=== PATIENT | male | born 1930 | race Caucasian/White ===

== ENCOUNTER 2016-11-06 12:01 | Emergency (ER) | payer MEDICARE, BC ==
[2016-11-06 11:26] LABS: BASOPHILS 0.7 %; BASOPHILS ABSOLUTE 0.06 10/3/uL (0.0-0.16); EOSINOPHILS 3.7 %; ER CBC TAT 0 Hrs 03 Mins; HEMATOCRIT 45.9 % (40.0-51.0); HEMOGLOBIN 15.3 g/dL (13.6-17.8); IMMATURE GRANULOCYTES 0.4 %; IMMATURE GRANULOCYTES ABSOLUTE 0.03 10/3/uL (0.0-0.11); LYMPHOCYTES 36.9 %; LYMPHOCYTES ABSOLUTE 2.98 10/3/uL (0.67-4.30); MEAN CORPUS HGB CONC 33.3 g/dL (32.0-36.0); MEAN CORPUSCULAR HEMOGLOB 29.4 pg (26.0-34.0); MEAN PLATELET VOLUME 9.8 fL (9.2-13.0); MONOCYTES 5.2 %; MONOCYTES ABSOLUTE 0.42 10/3/uL (0.21-1.20); NEUTROPHILS 53.1 %; NEUTROPHILS ABSOLUTE 4.28 10/3/uL (2.02-8.40); RBC DISTRIBUTION WIDTH 13.5 % (12.0-16.0); RED CELL COUNT 5.21 10/6/uL (4.7-6.1); WHITE BLOOD CELLS 8.1 10/3/uL (4.5-10.5)
[2016-11-06 11:27] LABS: MANUAL DIFF NO %; MEAN CORPUSCULAR VOLUME 88.1 fL (80-100); PLATELET COUNT 207 10/3/uL (150-400)
[2016-11-06 11:34] LABS: PARTIAL THROMBO TIME 26.1 SEC (22.5-37.2); PROTIME (NOT ORD) 12.9 SEC (12.0-14.5)
[2016-11-06 11:41] LABS: BUN (BLOOD UREA NITROGEN) 24 MG/DL (6-23); CHEST PAIN PROFILE TAT 0 Hrs 18 Mins; CHLORIDE, SERUM 104 MMOL/L (96-112); CO2 (CARBON DIOXIDE) 29 MMOL/L (24-34); GFR AFRICAN AMERICAN 45 ML/MIN (>=60); GFR NON AFRICAN AMERICAN 39 ML/MIN (>=60); GLUCOSE, SERUM 139 MG/DL (60-99); POTASSIUM, SERUM 4.3 MMOL/L (3.5-5.3); SODIUM, SERUM 141 MMOL/L (135-148); TROPONIN I 0.04 NG/ML (<0.05)
[~2016-11-06 12:01] MED LIST: ALB4 PO; ASAB PO; BLOOD THINNER PO; CAT1 PO; COMBIVENT INH; CORDARONE PO; COREG12 PO; COREG6 PO; FLOMAX4 PO; HALF81 PO; I40 PO; JANTOVEN3 MG PO; JANTOVEN4 MG PO; JANTOVEN5 MG PO; KLOR-CON 1010 MEQ PO; KLOR-CON M2020 MEQ PO; L40 PO; L80 PO; LEVAQUIN750 MG PO; LOP25 PO; M-END PE PO; MICRO-K10 MEQ PO; MOMUD PO; PACERONE100 MG PO; PACERONE200 MG PO; PRILO PO; PRIN20 PO; PROAIR HFA INH; SYMBICORT 160/41 INH INH; VENTOLIN HFA INH; Z300 PO; ZANTAC150 MG PO; ZESTRIL20 MG PO; [UNRECOGNIZED DRUG - OTHER] PO
[2017-04-06] MEDS ORDERED: METHOC500B PO (08:17)
[2017-04-06] MEDS ORDERED: KLOR-CON M2020 MEQ PO (08:22)
== END 2016-11-06 13:21 | disposition home or self-care (01) ==
LOC: ER 12:01
PROVIDERS: Emergency Medicine
DX: J06.9 Acute upper respiratory infection, unspecified (principal); I13.0 Hypertensive heart and chronic kidney disease with heart failure and stage 1 through stage 4 chronic kidney disease, or unspecified chronic kidney disease; I50.9 Heart failure, unspecified; Z87.891 Personal history of nicotine dependence; Z87.01 Personal history of pneumonia (recurrent); Z79.82 Long term (current) use of aspirin; Z79.899 Other long term (current) drug therapy
CPT/HCPCS: 71010; 80048; 83735; 83880; 84484; 85025; 85610; 85730; 87040; 93005; 96374; 96375; 99284; J2930

== ENCOUNTER 2017-02-18 10:05 | Emergency (ER) | payer MEDICARE, BC ==
[2017-02-18 09:24] LABS: BASOPHILS 0.6 %; BASOPHILS ABSOLUTE 0.04 10/3/uL (0.0-0.16); EOSINOPHILS ABSOLUTE 0.14 10/3/uL (0.0-0.53); HEMATOCRIT 48.1 % (40.0-51.0); HEMOGLOBIN 16.2 g/dL (13.6-17.8); IMMATURE GRANULOCYTES 0.1 %; IMMATURE GRANULOCYTES ABSOLUTE 0.01 10/3/uL (0.0-0.11); LYMPHOCYTES 34.8 %; LYMPHOCYTES ABSOLUTE 2.46 10/3/uL (0.67-4.30); MEAN CORPUS HGB CONC 33.7 g/dL (32.0-36.0); MEAN CORPUSCULAR HEMOGLOB 30.1 pg (26.0-34.0); MEAN CORPUSCULAR VOLUME 89.4 fL (80-100); MEAN PLATELET VOLUME 10.3 fL (9.2-13.0); MONOCYTES 7.5 %; MONOCYTES ABSOLUTE 0.53 10/3/uL (0.21-1.20); NEUTROPHILS ABSOLUTE 3.89 10/3/uL (2.02-8.40); PLATELET COUNT 160 10/3/uL (150-400); RBC DISTRIBUTION WIDTH 14.2 % (12.0-16.0); RED CELL COUNT 5.38 10/6/uL (4.7-6.1); WHITE BLOOD CELLS 7.1 10/3/uL (4.5-10.5)
[2017-02-18 09:25] LABS: MANUAL DIFF NO %
[2017-02-18 09:42] LABS: A/G RATIO 1.2 (0.7-1.9); ALBUMIN 3.8 G/DL (3.5-5.0); BUN (BLOOD UREA NITROGEN) 25 MG/DL (6-23); CHLORIDE, SERUM 110 MMOL/L (96-112); CO2 (CARBON DIOXIDE) 28 MMOL/L (24-34); GFR AFRICAN AMERICAN 49 ML/MIN (>=60); GFR NON AFRICAN AMERICAN 42 ML/MIN (>=60); GLOBULIN 3.1 G/DL (2.5-4.1); GLUCOSE, SERUM 114 MG/DL (60-99); POTASSIUM, SERUM 5.1 MMOL/L (3.5-5.3); SGOT(AST) 20 U/L (5-40); SGPT(ALT) 16 U/L (5-65); SODIUM, SERUM 143 MMOL/L (135-148); TOTAL PROTEIN 6.9 G/DL (6.0-8.5)
[2017-02-18 09:43] LABS: ALKALINE PHOSPHATASE 87 U/L (45-117); TOTAL BILIRUBIN 1.4 MG/DL (0-1.2)
[2017-02-18 09:59] LABS: ASCORBIC ACID (UR NOT ORDER) NEG (NEG); BILIRUBIN, URINE NEGATIVE (NEG); ER URINALYSIS TAT 0 Hrs 07 Mins; KETONE, URINE NEGATIVE (NEG); LEUKOCYTE ESTERASE(NOT OR NEG (NEG); NITRITE (URINE) NEG (NEG); WBC (NOT ORDERED) (RFLEX) 2 (0-5)
[2017-04-06] MEDS ORDERED: METHOC500B PO (08:17)
[2017-04-06] MEDS ORDERED: KLOR-CON M2020 MEQ PO (08:22)
== END 2017-02-18 10:57 | disposition home or self-care (01) ==
LOC: ER 10:05
PROVIDERS: Emergency Medicine
DX: R30.0 Dysuria (principal); N32.89 Other specified disorders of bladder; N18.9 Chronic kidney disease, unspecified; J45.909 Unspecified asthma, uncomplicated; I13.0 Hypertensive heart and chronic kidney disease with heart failure and stage 1 through stage 4 chronic kidney disease, or unspecified chronic kidney disease; I50.9 Heart failure, unspecified; Z87.01 Personal history of pneumonia (recurrent); Z87.891 Personal history of nicotine dependence; Z88.1 Allergy status to other antibiotic agents; Z79.82 Long term (current) use of aspirin; Z79.899 Other long term (current) drug therapy
CPT/HCPCS: 80053; 81001; 85025; 99283